=== PATIENT | female | born 1980 | race African-American/Black ===

== ENCOUNTER 2016-10-21 21:23 | Emergency (ER) | payer OTHER ==
[~2016-10-21] VITALS: Ht 157.5 cm; Wt 85.5 kg
[~2016-10-21 21:23] MED LIST: ALPR0.5T PO; CEPH-443 PO; CETI10CA PO; DICY20TA59 PO; ELIM TOP; FLUO20CA38 PO; GUAI118L94 PO; GUAI473L22 PO; HYDR-842 PO; IBUP-1542 PO; LURA40TA PO; ONDA4TAB14 PO
[2016-10-21 21:27] VITALS: Ht 157.5 cm; Wt 85.5 kg
[2016-10-21] MEDS ORDERED: TRAZ50TA18 PO (21:52)
[2016-10-21] MEDS ORDERED: OLAN5TAB5 PO (21:52)
[2016-10-21] MEDS ORDERED: LURA20TA PO (21:52)
--- NOTE | 2016-10-21 22:01 | ERD ---
ER Documentation Chief Complaint Date/Time DATE: 10/21/16 TIME: 21:58 Chief Complaint Pt has been out of meds for 3 months, Latuda, Zyprexa, and Trazadone HPI 36-year-old female presents for medication refill for a 2 day, Zyprexa and trazodone. States she has not been on meds for 3 months. She is currently feeling all right would like to get back her medications. She denies any suicidal homicidal ideations. She's actually been making an effort to get back with her psychiatric clinic but they will not be able to see her until the appointment and she is made on the . He otherwise feels well and has no medical complaints. ROS All systems reviewed and are negative except as per history of present illness. Medications Home Meds Active Scripts Trazodone Hcl* (Trazodone Hcl*) 50 Mg Tablet, 25 MG PO QHS, #4 TAB Prov:NIKOLAS RAE DO 10/21/16 Lurasidone Hcl (LATUDA) 20 Mg Tablet, 20 MG PO DAILY, #5 TAB Prov:NIKOLAS RAE DO 10/21/16 Olanzapine* (Zyprexa*) 5 Mg Tablet, 5 MG PO DAILY, #5 TAB Prov:GREENNIKOLAS DO 10/21/16 Cetirizine Hcl* (Zyrtec*) 10 Mg Capsule, 10 MG PO DAILY, #30 TAB.CHEW Prov:LISA LOPEZ NP 05/22/16 Guaifenesin-Codeine Phosphate* (Guaifenesin* AC Cough Syrup) 473 Ml Liquid, 5 ML PO Q4H Y for COUGH, #60 ML Prov:LISA LOPEZ NP 05/22/16 Ondansetron (Ondansetron Odt) 4 Mg Tab.rapdis, 4 MG PO Q8 Y for NAUSEA AND/OR VOMITING, #30 TAB Prov:LISA LOPEZ NP 05/22/16 Ibuprofen* (Motrin*) 600 Mg Tab, 600 MG PO Q6H Y for PAIN AND OR ELEVATED TEMP, #30 TAB Prov:LISA LOPEZ NP 05/22/16 Dicyclomine Hcl* (Bentyl*) 20 Mg Tablet, 20 MG PO QID, #20 TAB Prov:CUISIA,LISA HACKETT T. INSPECTOR PACKER 05/22/16 Ibuprofen* (Motrin*) 600 Mg Tab, 600 MG PO Q6H Y for PAIN AND OR ELEVATED TEMP, #30 TAB Prov:LISA LOPEZ INSPECTOR PACKER 12/30/15 Cetirizine Hcl* (Zyrtec*) 10 Mg Capsule, 10 MG PO DAILY, #30 TAB.CHEW Prov:LISA LOPEZ INSPECTOR PACKER 12/30/15 Guaifenesin-Codeine Phosphate* (Guaifenesin* with Codeine Liq) 120 Ml Liquid, 5 ML PO Q4H for COUGH, #60 ML Prov:LISA LOPEZ NP 12/30/15 Alprazolam* (Xanax*) 0.5 Mg Tab, 0.5 MG PO Q8H Y for ANXIETY, #15 TAB Prov:IVAN COCHRAN 12/27/15 Permethrin* (Elimite*) 5% Cr, 1 APPLIC TOP ONCE, #1 BOTTLE Prov:SHAVONNE GUSTAFSON INSPECTOR PACKER 01/01/15 Cephalexin* (Keflex*) 500 Mg Capsule, 500 MG PO BID for 7 Days, CAP Prov:SHAVONNE GUSTAFSON INSPECTOR PACKER 01/01/15 Hydroxyzine Hcl* (Atarax*) 25 Mg Tab, 25 MG PO Q6H Y for ITCHING, #30 TAB Prov:SHAVONNE GUSTAFSON INSPECTOR PACKER 01/01/15 Reported Medications Lurasidone Hcl (LATUDA) 40 Mg Tablet, 40 MG PO QHS 04/24/14 Fluoxetine Hcl* (Prozac*) 20 Mg Capsule, 20 MG PO DAILY, CAP 04/24/14 Alprazolam* (Xanax*) 0.5 Mg Tab, 0.5 MG PO TID, TAB 04/24/14 Allergies Allergies: Coded Allergies: No Known Drug Allergy (Verified Allergy, Unknown, 12/26/15) PMhx/Soc History of Surgery: No Anesthesia Reaction: No Hx Neurological Disorder: No Hx Respiratory Disorders: No Hx Cardiac Disorders: No Hx Psychiatric Problems: Yes (depression) Hx Miscellaneous Medical Probl: No Hx Alcohol Use: No Hx Substance Use: No Hx Tobacco Use: Yes Smoking Status: Current every day smoker Physical Exam Vitals Vital Signs Date Time Temp Pulse Resp B/P Pulse Ox O2 Delivery O2 Flow Rate FiO2 10/21/16 21:27 98.0 78 16 119/74 99 Physical Exam Const: [] No distress Neur: Awake and alert and oriented 3, no focal deficits Psych: Normal Mood and Affect Procedures/MDM Simple medication refill for chronic medications to the patient has been without for 3 months without any inability to perform her daily tasks or razor children. She has no suicidal some homicidal ideations. She is stable. I'm going to provide her with 5 days worth of medications and follow-up with a local clinics in the area. Departure Diagnosis: Primary Impression: Encounter for medication refill Condition: Stable Patient Instructions: Taking Medicine Safely Referrals: [facility] YOU HAVE RECEIVED A MEDICAL SCREENING EXAM AND THE RESULTS INDICATE THAT YOU DO NOT HAVE A CONDITION THAT REQUIRES URGENT TREATMENT IN THE EMERGENCY DEPARTMENT. FURTHER EVALUATION AND TREATMENT OF YOUR CONDITION CAN WAIT UNTIL YOU ARE SEEN IN YOUR DOCTORS OFFICE WITHIN THE NEXT 1-2 DAYS. IT IS YOUR RESPONSIBILITY TO MAKE AN APPOINTMENT FOR FOLOW-UP CARE. IF YOU HAVE A PRIMARY DOCTOR --you should call your primary doctor and schedule an appointment IF YOU DO NOT HAVE A PRIMARY DOCTOR YOU CAN CALL OUR PHYSICIAN REFERRAL HOTLINE AT IF YOU CAN NOT AFFORD TO SEE A PHYSICIAN YOU CAN CHOSE FROM THE FOLLOWING [facility] [address] [facility]. [facility] [address] [facility] [facility] [address] [facility] [facility] [address] [facility]. [facility] [address] [facility]. [facility] [address] Additional Instructions: Call your primary care doctor Sunday for an appointment during the next 1-2 days.See the doctor sooner or return here if your condition worsens before your appointment time. NIKOLAS RAE DO Oct 21, 2016 22:01
== END 2016-10-21 22:40 | disposition home or self-care (01) ==
LOC: FTE 21:23
DX: Z76.0 Encounter for issue of repeat prescription (principal); F17.210 Nicotine dependence, cigarettes, uncomplicated
CPT/HCPCS: 99281

== ENCOUNTER 2016-11-11 23:43 | Emergency (ER) | payer OTHER ==
[~2016-11-11] VITALS: Ht 154.9 cm; Wt 89.1 kg
[~2016-11-11 23:43] MED LIST changes: +LURA20TA PO; +OLAN5TAB5 PO; +TRAZ50TA18 PO
[2016-11-11 23:47] VITALS: Ht 154.9 cm; Wt 89.1 kg
[2016-11-12] MEDS ORDERED: ACETAMINOPHEN 500 MG TAB PO STA (00:23)
[2016-11-12] MEDS ORDERED: ACET500C5 PO (00:41)
[2016-11-12] MEDS ORDERED: AMO500 PO (00:42)
[2016-11-12] MEDS ORDERED: GUAI-637 PO (00:42)
[2016-11-12] MEDS ORDERED: ONDA4TAB14 PO (00:43)
--- NOTE | 2016-11-12 00:53 | ERD ---
ER Documentation Chief Complaint Date/Time DATE: 11/12/16 TIME: 00:[address], cough, cold and fever x1 wk, Bodyache and Back pain x3 wks HPI Patient is a 36-year-old female who presents emergency department with numerous concerns including a tooth pain, sore throat, cough, fever, generalized body aches and back pain. Patient states that her tooth pain started approximately 3 weeks ago. Patient does have a history of dental caries which she has not been seen by dentist for in the past. Patient states the pain initiates in her right upper molar and radiates into her head. Patient states that she has been taking migraine medication with no relief of symptoms. Patient states that she also has had nasal congestion, a cough and fever for last week. Patient reports tactile fevers. Patient states that her cough is dry in nature. Patient denies any recent travel, hemoptysis. Patient also complaining of shortness of breath and chest pain with coughing only. Patient denies any chest pain at rest. Patient also reports nausea and vomiting. Patient patient also reports throat pain. She denies any trismus, drooling or hyperextension of her neck. She denies receiving the flu vaccine this year. Patient denies any recent travel or sick contacts. She is requesting antibiotics at this time. Patient also requesting HIV testing , given that she feels that her symptoms are related to HIV. ROS All systems reviewed and are negative except as per history of present illness. Medications Home Meds Active Scripts Ondansetron (Ondansetron Odt) 4 Mg Tab.rapdis, 4 MG PO Q6H Y for NAUSEA AND/OR VOMITING, #10 TAB Prov:AMERICA STEARNS PA-C 11/12/16 Guaifenesin* (Robitussin*) 100 Mg/5 Ml Syrup, 100 MG PO Q4H Y for COUGH, #1 BOT Prov:AMERICA STEARNS PA-C 11/12/16 Amoxicillin* (Amoxicillin*) 500 Mg Cap, 500 MG PO TID for 7 Days, CAP Prov:AMERICA STEARNS PA-C 11/12/16 Acetaminophen* (Tylophen*) 500 Mg Capsule, 1 CAP PO Q6H Y for PAIN AND OR ELEVATED TEMP, #20 CAP Prov:AMERICA STEARNS PA-C 11/12/16 Trazodone Hcl* (Trazodone Hcl*) 50 Mg Tablet, 25 MG PO QHS, #4 TAB Prov:NIKOLAS RAE DO 10/21/16 Lurasidone Hcl (LATUDA) 20 Mg Tablet, 20 MG PO DAILY, #5 TAB Prov:NIKOLAS RAE DO 10/21/16 Olanzapine* (Zyprexa*) 5 Mg Tablet, 5 MG PO DAILY, #5 TAB Prov:NIKOLAS RAE DO 10/21/16 Cetirizine Hcl* (Zyrtec*) 10 Mg Capsule, 10 MG PO DAILY, #30 TAB.CHEW Prov:LISA LOPEZ NP 05/22/16 Guaifenesin-Codeine Phosphate* (Guaifenesin* AC Cough Syrup) 473 Ml Liquid, 5 ML PO Q4H Y for COUGH, #60 ML Prov:LISA LOPEZ NP 05/22/16 Ondansetron (Ondansetron Odt) 4 Mg Tab.rapdis, 4 MG PO Q8 Y for NAUSEA AND/OR VOMITING, #30 TAB Prov:LISA LOPEZ NP 05/22/16 Ibuprofen* (Motrin*) 600 Mg Tab, 600 MG PO Q6H Y for PAIN AND OR ELEVATED TEMP, #30 TAB Prov:LISA LOPEZ NP 05/22/16 Dicyclomine Hcl* (Bentyl*) 20 Mg Tablet, 20 MG PO QID, #20 TAB Prov:LISA LOPEZ NP 05/22/16 Ibuprofen* (Motrin*) 600 Mg Tab, 600 MG PO Q6H Y for PAIN AND OR ELEVATED TEMP, #30 TAB Prov:LISA LOPEZ NP 12/30/15 Cetirizine Hcl* (Zyrtec*) 10 Mg Capsule, 10 MG PO DAILY, #30 TAB.CHEW Prov:LISA LOPEZ NP 12/30/15 Guaifenesin-Codeine Phosphate* (Guaifenesin* with Codeine Liq) 120 Ml Liquid, 5 ML PO Q4H for COUGH, #60 ML Prov:LISA LOPEZ NP 12/30/15 Alprazolam* (Xanax*) 0.5 Mg Tab, 0.5 MG PO Q8H Y for ANXIETY, #15 TAB Prov:IVAN COCHRAN 12/27/15 Permethrin* (Elimite*) 5% Cr, 1 APPLIC TOP ONCE, #1 BOTTLE Prov:SHAVONNE GUSTAFSON. BUTTON SPINDLER 01/01/15 Cephalexin* (Keflex*) 500 Mg Capsule, 500 MG PO BID for 7 Days, CAP Prov:SHAVONNE GUSTAFSON. BUTTON SPINDLER 01/01/15 Hydroxyzine Hcl* (Atarax*) 25 Mg Tab, 25 MG PO Q6H Y for ITCHING, #30 TAB Prov:SHAVONNE GUSTAFSON. BUTTON SPINDLER 01/01/15 Reported Medications Lurasidone Hcl (LATUDA) 40 Mg Tablet, 40 MG PO QHS 04/24/14 Fluoxetine Hcl* (Prozac*) 20 Mg Capsule, 20 MG PO DAILY, CAP 04/24/14 Alprazolam* (Xanax*) 0.5 Mg Tab, 0.5 MG PO TID, TAB 04/24/14 Allergies Allergies: Coded Allergies: No Known Drug Allergy (Verified Allergy, Unknown, 12/26/15) PMhx/Soc History of Surgery: No Anesthesia Reaction: No Hx Neurological Disorder: No Hx Respiratory Disorders: No Hx Cardiac Disorders: No Hx Psychiatric Problems: Yes (depression) Hx Miscellaneous Medical Probl: No Hx Alcohol Use: Yes (wine) Hx Substance Use: No Hx Tobacco Use: Yes Smoking Status: Former smoker FmHx Family History: No diabetes Physical Exam Vitals Vital Signs Date Time Temp Pulse Resp B/P Pulse Ox O2 Delivery O2 Flow Rate FiO2 11/11/16 23:47 98.2 94 18 133/77 97 Physical Exam GENERAL: Well-developed, well-nourished female. Appears in no acute distress. HEAD: Normocephalic, atraumatic. No deformities or ecchymosis. EYE: Pupils equal, round, and reactive to light. EOMs intact. No conjunctival erythema. No eye discharge. ENT: External ear without any masses or tenderness. Auditory canals clear bilaterally. TM visualized bilaterally, non-erythematous, non-bulging. Nasal mucosa pink with no discharge. Oropharynx is pink without any tonsillar erythema or exudates. No uvula deviation. No kissing tonsils. NECK: Supple. No meningismus. Normal ROM of the neck. No hyperextension of the neck. LUNG: Clear to auscultation bilaterally. No rhonchi, wheezing, rales or coarse breath sounds. HEART: Regular rate and rhythm. No murmurs, rubs or gallops. ABDOMEN: Soft, nontender, and nondistended. Positive bowel sounds in all four quadrants. No rebound tenderness, no guarding. (-) McBurney's point tenderness. No CVA tenderness. BACK: No midline tenderness. EXTREMITES: Equal pulses bilaterally. No peripheral clubbing, cyanosis or edema. No unilateral leg swelling. NEUROLOGIC: Alert and oriented to person, place and time. Moving all four extremities. 5/5 strength in all extremities. Normal speech. Steady gait. SKIN: Normal color. Warm and dry. No rashes or lesions. Results 24 hrs Current Medications Medications (Trade) Dose Ordered Sig/Eliseo Route PRN Reason Start Time Stop Time Status Last Admin Dose Admin Acetaminophen (Tylenol Tab) 1,000 mg ONCE STAT PO 11/12/16 00:23 11/12/16 00:25 DC 11/12/16 00:34 Procedures/MDM ED COURSE: The patient was stable throughout ED course. I kept the patient and/or family informed of laboratory and diagnostic imaging results throughout the ED course. EKG: Read by Dr. Doherty, attending physician. EKG shows normal sinus rhythm at a rate of 85 bpm. No arrhythmias, acute ST elevations were noted. DIAGNOSTIC IMAGING: Read by radiologist. DIAGNOSTIC IMAGING REPORT Patient: BABAR GUZMAN : 1980 Age: 36 Sex: F [id number] DOS: 11/12/16 0023 Ordering MD: AMERICA STEARNS PA-C Location: [facility] Room/Bed: PROCEDURE: XR Chest. CLINICAL INDICATION: Cough. TECHNIQUE: Single frontal chest x-ray. COMPARISON: 12/27/2015 FINDINGS: The cardiomediastinal silhouette is unremarkable. There is no congestive heart failure.. No focal infiltrate is seen. There is no pleural effusion. There is no pneumothorax. The osseous structures are unremarkable. IMPRESSION: 1. No active disease. RPTAT: HMVK .Yossi Fraga MD, Date Time Electronically viewed and signed by .Yossi Fraga MD, MD on 11/12/2016 01:30 .K/ CC: AMERICA STEARNS PA-C MEDICATIONS GIVEN: Tylenol Patient tolerated medication well with no adverse reactions. Patient reported improvement in pain. MEDICAL DECISION MAKING: This is a 36-year-old female who presents emergency department with numerous concerns including sore throat, tooth pain, cough, fever, body aches, headache. Vital signs were reviewed. Patient was afebrile. Patient was not hypoxic. ENT exam was normal. Lung exam is normal. Abdominal exam was normal. Given the patient did report cough for over a week, chest x-ray was obtained. Chest xray was unremarkable. Patient was given Tylenol here in the emergency department for symptoms. Given these findings, the patients presentation is most consistent with viral syndrome and dental caries. I believe that the patient's headaches are due to dental caries. I have a much lower clinical concern ACS, pericarditis, arrhythmia, pneumothorax, pneumonia, meningitis, sinusitis, otitis externa, acute otitis media, strep pharyngitis, epiglottitis or peritonsillar abscess. Low suspicion for intracranial hemorrhage, migraines, CVA, temporal arteritis, benign intracranial hypertension, intracranial mass, sinusitis. PRESCRIPTIONS: Tylenol, amoxicillin, Robitussin, Zofran DISCHARGE: At this time, patient is stable for discharge and outpatient management. Patient provided with a copy of all imaging studies obtained today. I explained to the patient that I am unable to rule out HIV at this time. Patient will need to see her primary care physician for HIV testing. Supportive therapies such as OTC throat lozenges, salt water gurgles, popsicles and jello discussed. I have instructed the patient to follow-up with his/her primary care physician in 1-2 days. I have instructed the patient to promptly return to the ER for any new or worsening symptoms including increased pain, swelling, fever, nausea, vomiting, weakness or difficulty breathing. The patient and/or family expressed understanding of and agreement with this plan. All questions were answered. Home care instructions were provided. Departure Diagnosis: Primary Impression: Influenza-like symptoms Additional Impression: Dental caries Condition: Stable Patient Instructions: Influenza (Adult) Referrals: [facility] YOU HAVE RECEIVED A MEDICAL SCREENING EXAM AND THE RESULTS INDICATE THAT YOU DO NOT HAVE A CONDITION THAT REQUIRES URGENT TREATMENT IN THE EMERGENCY DEPARTMENT. FURTHER EVALUATION AND TREATMENT OF YOUR CONDITION CAN WAIT UNTIL YOU ARE SEEN IN YOUR DOCTORS OFFICE WITHIN THE NEXT 1-2 DAYS. IT IS YOUR RESPONSIBILITY TO MAKE AN APPOINTMENT FOR FOLOW-UP CARE. IF YOU HAVE A PRIMARY DOCTOR --you should call your primary doctor and schedule an appointment IF YOU DO NOT HAVE A PRIMARY DOCTOR YOU CAN CALL OUR PHYSICIAN REFERRAL HOTLINE AT IF YOU CAN NOT AFFORD TO SEE A PHYSICIAN YOU CAN CHOSE FROM THE FOLLOWING [facility] [address] [facility]. [facility] [address] [facility] [address] [facility] [address] [facility] [facility] [address] [facility]. [facility] [address] [facility]. [facility] YOU HAVE RECEIVED A MEDICAL SCREENING EXAM AND THE RESULTS INDICATE THAT YOU DO NOT HAVE A CONDITION THAT REQUIRES URGENT TREATMENT IN THE EMERGENCY DEPARTMENT. FURTHER EVALUATION AND TREATMENT OF YOUR CONDITION CAN WAIT UNTIL YOU ARE SEEN IN YOUR DOCTORS OFFICE WITHIN THE NEXT 1-2 DAYS. IT IS YOUR RESPONSIBILITY TO MAKE AN APPOINTMENT FOR FOLOW-UP CARE. IF YOU HAVE A PRIMARY DOCTOR --you should call your primary doctor and schedule and appointment IF YOU DO NOT HAVE A PRIMARY DOCTOR YOU CAN CALL OUR PHYSICIAN REFERRAL HOTLINE AT . IF YOU CAN NOT AFFORD TO SEE A PHYSICIAN YOU CAN CHOSE FROM THE FOLLOWING [facility] [place] INSTITUTIONS: [facility] [address] [place] [address] [facility] [address] [place] [address] [facility] [address] [place] [address] [facility] Hours: Mon - Fri 9:00 AM - 5:00 PM Additional Instructions: Call your primary care doctor/ DENTIST TOMORROW for an appointment during the next 1-2 days.See the doctor sooner or return here if your condition worsens before your appointment time. See referral list for Dentist. AMERICA STEARNS PA-C November 12, 2016 00:53
--- NOTE | 2016-11-12 01:31 | RADRPT ---
PROCEDURE: XR Chest. CLINICAL INDICATION: Cough. TECHNIQUE: Single frontal chest x-ray. COMPARISON: 12/27/2015 FINDINGS: The cardiomediastinal silhouette is unremarkable. There is no congestive heart failure.. No focal i nfiltrate is seen. There is no pleural effusion. There is no pneumothorax. The osseous structures are unremarkable. IMPRESSION: 1. No active disease. RPTAT: HMVK .Yossi Fraga MD, MD Date Time Electronically viewed and signed by .Yossi Fraga MD, on 11/12/2016 01:30 .K/
[2016-11-12 01:42] VITALS: BP 112/65; PULSE 62; RESP 22; TEMP 97.8
== END 2016-11-12 01:43 | disposition home or self-care (01) ==
LOC: FTE 23:43
DX: J02.9 Acute pharyngitis, unspecified (principal); R05 Cough; R50.9 Fever, unspecified; M54.9 Dorsalgia, unspecified; K02.9 Dental caries, unspecified; Z87.891 Personal history of nicotine dependence
CPT/HCPCS: 71010; 93005; Z7502; Z7610

== ENCOUNTER 2016-11-26 01:18 | Emergency (ER) | payer OTHER ==
[~2016-11-26] VITALS: Wt 82.5 kg
[~2016-11-26 01:18] MED LIST changes: +ACET500C5 PO; +AMO500 PO; +GUAI-637 PO
[2016-11-26 02:42] LABS: ADD SCAN DIFF NO
[2016-11-26 02:45] LABS: BASOPHIL # 0.1 10^3/ul (0.0-0.1); BASOPHILS % 0.9 % (0.0-2.0); EOSINOPHILS # 0.1 10^3/ul (0.0-0.5); EOSINOPHILS % 2.3 % (0.0-7.0); HEMATOCRIT 36.6 % (37.0-47.0); HEMOGLOBIN 11.3 g/dl (12.0-16.0); LYMPHOCYTES # 2.5 10^3/ul (0.8-2.9); LYMPHOCYTES % 45.1 % (15.0-51.0); MEAN CORPUSCULAR HEMOGLOBIN 26.3 pg (29.0-33.0); MEAN CORPUSCULAR HGB CONC 30.9 g/dl (32.0-37.0); MEAN CORPUSCULAR VOLUME 85.3 fl (82.0-101.0); MEAN PLATELET VOLUME 10.2 fl (7.4-10.4); MONOCYTE # 0.6 10^3/ul (0.3-0.9); MONOCYTES % 11.3 % (0.0-11.0); NEUTROPHIL # 2.3 10^3/ul (1.6-7.5); NEUTROPHILS % 40.2 % (39.0-77.0); PLATELET COUNT 263 10^3/UL (140-415); RED BLOOD COUNT 4.29 10^6/ul (4.20-5.40); WHITE BLOOD COUNT 5.6 10^3/ul (4.8-10.8)
[2016-11-26 03:11] LABS: ALBUMIN 4.3 g/dl (3.3-4.9); CHLORIDE 107 mmol/L (97-110); SODIUM 144 mmol/L (135-144)
[2016-11-26 03:12] LABS: POTASSIUM 3.7 mmol/L (3.5-5.1)
[2016-11-26 03:14] LABS: ALANINE AMINOTRANSFERASE 25 IU/L (13-69); ALBUMIN/GLOBULIN RATIO 1.07; ALKALINE PHOSPHATASE 69 IU/L (42-121); ANION GAP 18 (8-16); ASPARTATE AMINO TRANSFERASE 15 IU/L (15-46); BILIRUBIN,INDIRECT 0.1 mg/dl (0-1.1); BILIRUBIN,TOTAL 0.1 mg/dl (0.2-1.3); BLOOD UREA NITROGEN 11 mg/dl (7-20); CALCIUM 9.4 mg/dl (8.4-10.2); CARBON DIOXIDE 23 mmol/L (21-31); CREATININE 0.77 mg/dl (0.44-1.00); GLUCOSE 93 mg/dl (70-220); TOTAL PROTEIN 8.3 g/dl (6.1-8.1)
[2016-11-26 03:16] LABS: ACETAMINOPHEN < 10.0 ug/ml (10.0-30.0); ETHANOL < 10.0 mg/dl; SALICYLATE < 1.0 mg/dl (5.0-30.0)
[2016-11-26 03:58] LABS: ADD UMIC NO; URINE BILIRUBIN (Dip) NEGATIVE (NEGATIVE); URINE BLOOD (Dip) NEGATIVE (NEGATIVE); URINE COLOR YELLOW (YELLOW); URINE GLUCOSE (Dip) NEGATIVE (NEGATIVE); URINE KETONES (Dip) NEGATIVE (NEGATIVE); URINE LEUKOCYTE ESTERASE (Dip) NEGATIVE (NEGATIVE); URINE NITRITE (Dip) NEGATIVE (NEGATIVE); URINE TOTAL PROTEIN (Dip) NEGATIVE (NEGATIVE); URINE UROBILINOGEN (Dip) 0.2 E.U./dL (0.1-1.0)
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
[2016-11-26 04:19] LABS: BARBITURATES NEGATIVE (NEGATIVE); BENZODIAZEPINES NEGATIVE (NEGATIVE); CANNABINOIDS NEGATIVE (NEGATIVE); COCAINE NEGATIVE (NEGATIVE); OPIATES NEGATIVE (NEGATIVE)
--- NOTE | 2016-11-26 05:12 | ERD ---
ER Documentation Chief Complaint Date/Time DATE: 11/26/16 TIME: 05:10 Chief Complaint Suicidal ideation started today HPI This 36-year-old female presents with stated suicidal ideation without a specific plan. She states that she suffers from major depression which she has been diagnosed with in the past. She denies any medical complaints and has not taken anything or tried to harm herself yet. She also has no pain or any other medical issues currently. ROS All systems reviewed and are negative except as per history of present illness. Medications Home Meds Active Scripts Ondansetron (Ondansetron Odt) 4 Mg Tab.rapdis, 4 MG PO Q6H Y for NAUSEA AND/OR VOMITING, #10 TAB Prov:AMERICA STEARNS PA-C 11/12/16 Guaifenesin* (Robitussin*) 100 Mg/5 Ml Syrup, 100 MG PO Q4H Y for COUGH, #1 BOT Prov:AMERICA STEARNS PA-C 11/12/16 Amoxicillin* (Amoxicillin*) 500 Mg Cap, 500 MG PO TID for 7 Days, CAP Prov:AMERICA STEARNS PA-C 11/12/16 Acetaminophen* (Tylophen*) 500 Mg Capsule, 1 CAP PO Q6H Y for PAIN AND OR ELEVATED TEMP, #20 CAP Prov:AMERICA STEARNS PA-C 11/12/16 Trazodone Hcl* (Trazodone Hcl*) 50 Mg Tablet, 25 MG PO QHS, #4 TAB Prov:NIKOLAS RAE DO 10/21/16 Lurasidone Hcl (LATUDA) 20 Mg Tablet, 20 MG PO DAILY, #5 TAB Prov:NIKOLAS RAE DO 10/21/16 Olanzapine* (Zyprexa*) 5 Mg Tablet, 5 MG PO DAILY, #5 TAB Prov:NIKOLAS RAE DO 10/21/16 Cetirizine Hcl* (Zyrtec*) 10 Mg Capsule, 10 MG PO DAILY, #30 TAB.CHEW Prov:LISA LOPEZ NP 05/22/16 Guaifenesin-Codeine Phosphate* (Guaifenesin* AC Cough Syrup) 473 Ml Liquid, 5 ML PO Q4H Y for COUGH, #60 ML Prov:LISA LOPEZ NP 11/14/16 Ondansetron (Ondansetron Odt) 4 Mg Tab.rapdis, 4 MG PO Q8 Y for NAUSEA AND/OR VOMITING, #30 TAB Prov:LISA LOPEZ NP 05/22/16 Ibuprofen* (Motrin*) 600 Mg Tab, 600 MG PO Q6H Y for PAIN AND OR ELEVATED TEMP, #30 TAB Prov:LISA LOPEZ NP 05/22/16 Dicyclomine Hcl* (Bentyl*) 20 Mg Tablet, 20 MG PO QID, #20 TAB Prov:LISA LOPEZ NP 05/22/16 Ibuprofen* (Motrin*) 600 Mg Tab, 600 MG PO Q6H Y for PAIN AND OR ELEVATED TEMP, #30 TAB Prov:LISA LOPEZ NP 12/30/15 Cetirizine Hcl* (Zyrtec*) 10 Mg Capsule, 10 MG PO DAILY, #30 TAB.CHEW Prov:LISA LOPEZ NP 12/30/15 Guaifenesin-Codeine Phosphate* (Guaifenesin* with Codeine Liq) 120 Ml Liquid, 5 ML PO Q4H for COUGH, #60 ML Prov:LISA LOPEZ NP 12/30/15 Alprazolam* (Xanax*) 0.5 Mg Tab, 0.5 MG PO Q8H Y for ANXIETY, #15 TAB Prov:IVAN COCHRAN 12/27/15 Permethrin* (Elimite*) 5% Cr, 1 APPLIC TOP ONCE, #1 BOTTLE Prov:SHAVONNE GUSTAFSON NP 01/01/15 Cephalexin* (Keflex*) 500 Mg Capsule, 500 MG PO BID for 7 Days, CAP Prov:SHAVONNE GUSTAFSON NP 01/01/15 Hydroxyzine Hcl* (Atarax*) 25 Mg Tab, 25 MG PO Q6H Y for ITCHING, #30 TAB Prov:SHAVONNE GUSTAFSON NP 01/01/15 Reported Medications Lurasidone Hcl (LATUDA) 40 Mg Tablet, 40 MG PO QHS 04/24/14 Fluoxetine Hcl* (Prozac*) 20 Mg Capsule, 20 MG PO DAILY, CAP 04/24/14 Alprazolam* (Xanax*) 0.5 Mg Tab, 0.5 MG PO TID, TAB 04/24/14 Allergies Allergies: Coded Allergies: No Known Drug Allergy (Verified Allergy, Unknown, 12/26/15) PMhx/Soc Medical and Surgical Hx: pt denies Surgical Hx History of Surgery: No Anesthesia Reaction: No Hx Neurological Disorder: No Hx Respiratory Disorders: No Hx Cardiac Disorders: No Hx Psychiatric Problems: Yes (depression) Hx Miscellaneous Medical Probl: No Hx Alcohol Use: Yes (wine) Hx Substance Use: No Hx Tobacco Use: Yes Smoking Status: Current every day smoker Physical Exam Vitals Vital Signs Date Time Temp Pulse Resp B/P Pulse Ox O2 Delivery O2 Flow Rate FiO2 11/26/16 01:20 98.4 85 20 137/75 99 Physical Exam Const: [] Head: Atraumatic Eyes: Normal Conjunctiva ENT: Normal External Ears, Nose and Mouth. Neck: Full range of motion..~ No meningismus. Resp: Clear to auscultation bilaterally Cardio: Regular rate and rhythm, no murmurs Abd: Soft, non tender, non distended. Normal bowel sounds Skin: No petechiae or rashes Back: No midline or flank tenderness Ext: No cyanosis, or edema Neur: Awake and alert Psych: Normal Mood and Affect Result Diagram: 11/26/1621911/26/16 022 Results 24 hrs Laboratory Tests Test 11/26/16 02:20 11/26/16 03:30 White Blood Count 5.610^3/ul Red Blood Count 4.2910^6/ul Hemoglobin 11.3g/dl Hematocrit 36.6% Mean Corpuscular Volume 85.3fl Mean Corpuscular Hemoglobin 26.3pg Mean Corpuscular Hemoglobin Concent 30.9g/dl Red Cell Distribution Width 16.0% Platelet Count 53686^3/UL Mean Platelet Volume 10.2fl Neutrophils % 40.2% Lymphocytes % 45.1% Monocytes % 11.3% Eosinophils % 2.3% Basophils % 0.9% Nucleated Red Blood Cells % 0.0/100WBC Neutrophils # 2.310^3/ul Lymphocytes # 2.510^3/ul Monocytes # 0.610^3/ul Eosinophils # 0.110^3/ul Basophils # 0.110^3/ul Nucleated Red Blood Cells # 0.010^3/ul Sodium Level 144mmol/L Potassium Level 3.7mmol/L Chloride Level 107mmol/L Carbon Dioxide Level 23mmol/L Anion Gap 18 Blood Urea Nitrogen 11mg/dl Creatinine 0.77mg/dl Glucose Level 93mg/dl Calcium Level 9.4mg/dl Total Bilirubin 0.1mg/dl Direct Bilirubin 0.00mg/dl Indirect Bilirubin 0.1mg/dl Aspartate Amino Transf (AST/SGOT) 15IU/L Alanine Aminotransferase (ALT/SGPT) 25IU/L Alkaline Phosphatase 69IU/L Total Protein 8.3g/dl Albumin 4.3g/dl Globulin 4.00g/dl Albumin/Globulin Ratio 1.07 Salicylates Level < 1.0mg/dl Acetaminophen Level < 10.0ug/ml Ethyl Alcohol Level < 10.0mg/dl Urine Color YELLOW Urine Clarity CLEAR Urine pH 5.5 Urine Specific [place] >=1.030 Urine Ketones NEGATIVE Urine Nitrite NEGATIVE Urine Bilirubin NEGATIVE Urine Urobilinogen 0.2 E.U./dL Urine Leukocyte Esterase NEGATIVE Urine Hemoglobin NEGATIVE Urine Glucose NEGATIVE% Urine Total Protein NEGATIVE Urine Opiates Screen NEGATIVE Urine Barbiturates NEGATIVE Urine Amphetamines Screen NEGATIVE Urine Benzodiazepines Screen NEGATIVE Urine Cocaine Screen NEGATIVE Urine Cannabinoids NEGATIVE Procedures/MDM Young healthy female stating thoughts of hurting herself and wanting to be admitted to a psychiatric facility. Medically cleared in the sense that there are no current medical problems I see which preclude her from psychiatric admission. Tele-psychiatry recommended that she be admitted voluntarily. She is wanting to go to psych facility and thus will be transferred for voluntary admission. Mild anemia with no current symptoms. Departure Diagnosis: Primary Impression: Major depression NIKOLAS RAE DO November 26, 2016 05:12
[2016-11-26] MEDS ORDERED: OLAN10TA7 PO (11:31)
[2016-11-26 11:49] VITALS: BP 135/74; PULSE 80; RESP 20; TEMP 98.3
== END 2016-11-26 11:51 ==
LOC: E/R 01:18
DX: F32.9 Major depressive disorder, single episode, unspecified (principal); F17.210 Nicotine dependence, cigarettes, uncomplicated
CPT/HCPCS: 36415; 80053; 80306; 80307; 81003; 85025; Z7502

== ENCOUNTER 2017-04-18 | Emergency (ER) | payer OTHER ==
[~2017-04-18] VITALS: Ht 165.1 cm; Wt 86.0 kg
[~2017-04-18] MED LIST changes: -AMO500 PO; +AMOX500C2 PO; -FLUO20CA38 PO; +OLAN10TA7 PO
[2017-04-18 00:03] VITALS: Ht 165.1 cm; Wt 86.0 kg
[2017-04-18] MEDS ORDERED: KETOROLAC 30 MG INJ IM STA (02:05)
[2017-04-18 02:10] LABS: URINE BLOOD (Dip) POC 2+ (NEGATIVE)
[2017-04-18] MEDS ORDERED: CIPR500T4 PO (02:24)
[2017-04-18] MEDS ORDERED: NAPR-260 PO (02:24)
[2017-04-18] MEDS ORDERED: CEFTRIAXONE 1 GM INJ IM ONE (02:30)
[2017-04-18] MEDS ORDERED: LIDOCAINE 1% (MDV) 20 ML INJ SC ONE (02:30)
--- NOTE | 2017-04-18 02:45 | ERD ---
ER Documentation Chief Complaint Date/Time DATE: 04/18/17 TIME: 02:43 Chief Complaint frequent urinary, hematuria, dysuria x2 weeks HPI Patient is a 36-year-old female with past medical history of urinary tract infection presenting to the emergency department with complaints of frequent urination, hematuria, and dysuria ongoing intermittently for the past 2 weeks. Symptoms are intermittent and worsening. She also reports bilateral back pain and suprapubic pain. She denies fevers, chills, or other symptoms at this time. ROS All systems reviewed and are negative except as per history of present illness. Medications Home Meds Active Scripts Naproxen* (Naprosyn*) 500 Mg Tablet, 500 MG PO BID Y for PAIN AND/OR INFLAMMATION, #30 TAB Prov:PACO LOCKE PA-C 04/18/17 Ciprofloxacin Hcl* (Ciprofloxacin Hcl*) 500 Mg Tablet, 500 MG PO BID for 7 Days , #14 TAB Prov:PACO LOCKE PA-C 04/18/17 Ondansetron (Ondansetron Odt) 4 Mg Tab.rapdis, 4 MG PO Q6H Y for NAUSEA AND/OR VOMITING, #10 TAB Prov:AMERICA STEARNS PA-C 11/12/16 Guaifenesin* (Robitussin*) 100 Mg/5 Ml Syrup, 100 MG PO Q4H Y for COUGH, #1 BOT Prov:AMERICA STEARNS PA-C 11/12/16 Amoxicillin* (Amoxicillin*) 500 Mg Cap, 500 MG PO TID for 7 Days, CAP Prov:AMERICA STEARNS PA-C 11/12/16 Acetaminophen* (Tylophen*) 500 Mg Capsule, 1 CAP PO Q6H Y for PAIN AND OR ELEVATED TEMP, #20 CAP Prov:AMERICA STEARNS PA-C 11/12/16 Trazodone Hcl* (Trazodone Hcl*) 50 Mg Tablet, 25 MG PO QHS, #4 TAB Prov:NIKOLAS RAE DO 10/21/16 Lurasidone Hcl (LATUDA) 20 Mg Tablet, 20 MG PO DAILY, #5 TAB Prov:NIKOLAS RAE DO 10/21/16 Olanzapine* (Zyprexa*) 5 Mg Tablet, 5 MG PO DAILY, #5 TAB Prov:NIKOLAS RAE DO 10/21/16 Cetirizine Hcl* (Zyrtec*) 10 Mg Capsule, 10 MG PO DAILY, #30 TAB.CHEW Prov:LISA LOPEZ NP 05/22/16 Guaifenesin-Codeine Phosphate* (Guaifenesin* AC Cough Syrup) 473 Ml Liquid, 5 ML PO Q4H Y for COUGH, #60 ML Prov:LISA LOPEZ NP 05/22/16 Ondansetron (Ondansetron Odt) 4 Mg Tab.rapdis, 4 MG PO Q8 Y for NAUSEA AND/OR VOMITING, #30 TAB Prov:LISA LOPEZ NP 05/22/16 Ibuprofen* (Motrin*) 600 Mg Tab, 600 MG PO Q6H Y for PAIN AND OR ELEVATED TEMP, #30 TAB Prov:LISA LOPEZ NP 05/22/16 Dicyclomine Hcl* (Bentyl*) 20 Mg Tablet, 20 MG PO QID, #20 TAB Prov:LISA LOPEZ NP 05/22/16 Ibuprofen* (Motrin*) 600 Mg Tab, 600 MG PO Q6H Y for PAIN AND OR ELEVATED TEMP, #30 TAB Prov:LISA LOPEZ NP 12/30/15 Cetirizine Hcl* (Zyrtec*) 10 Mg Capsule, 10 MG PO DAILY, #30 TAB.CHEW Prov:LISA LOPEZ NP 12/30/15 Guaifenesin-Codeine Phosphate* (Guaifenesin* with Codeine Liq) 120 Ml Liquid, 5 ML PO Q4H for COUGH, #60 ML Prov:LISA LOPEZ NP 12/30/15 Alprazolam* (Xanax*) 0.5 Mg Tab, 0.5 MG PO Q8H Y for ANXIETY, #15 TAB Prov:IVAN COCHRAN 12/27/15 Permethrin* (Elimite*) 5% Cr, 1 APPLIC TOP ONCE, #1 BOTTLE Prov:SHAVONNE GUSTAFSON NP 01/01/15 Cephalexin* (Keflex*) 500 Mg Capsule, 500 MG PO BID for 7 Days, CAP Prov:SHAVONNE GUSTAFSON AIRFRAME TECHNICIAN 01/01/15 Hydroxyzine Hcl* (Atarax*) 25 Mg Tab, 25 MG PO Q6H Y for ITCHING, #30 TAB Prov:SHAVONNE GUSTAFSON. AIRFRAME TECHNICIAN 01/01/15 Reported Medications Olanzapine* (Zyprexa*) 10 Mg Tablet, 10 MG PO DAILY, #30 TAB 11/26/16 Lurasidone Hcl (LATUDA) 40 Mg Tablet, 40 MG PO QHS 04/24/14 Alprazolam* (Xanax*) 0.5 Mg Tab, 0.5 MG PO TID, TAB 04/24/14 Allergies Allergies: Coded Allergies: No Known Drug Allergy (Verified Allergy, Unknown, 04/18/17) PMhx/Soc Medical and Surgical Hx: pt denies Surgical Hx History of Surgery: No Anesthesia Reaction: No Hx Neurological Disorder: No Hx Respiratory Disorders: No Hx Cardiac Disorders: No Hx Psychiatric Problems: Yes (major depressive disorder) Hx Miscellaneous Medical Probl: No Hx Alcohol Use: No Hx Substance Use: No Hx Tobacco Use: Yes Smoking Status: Current every day smoker Physical Exam Vitals Vital Signs Date Time Temp Pulse Resp B/P Pulse Ox O2 Delivery O2 Flow Rate FiO2 04/18/17 00:03 97.1 75 18 131/82 99 Physical Exam Const: Nontoxic, well-appearing female in no acute distress. Head: Atraumatic Eyes: Normal Conjunctiva ENT: Normal External Ears, Nose and Mouth. Neck: Full range of motion..~ No meningismus. Resp: Clear to auscultation bilaterally Cardio: Regular rate and rhythm, no murmurs Abd: Soft, non tender, non distended. Normal bowel sounds and mild bilateral suprapubic tenderness to palpation. No rebound tenderness or guarding. No McBurney's point tenderness. Skin: No petechiae or rashes Back: No midline or flank tenderness. Mild bilateral low back pain. No true CVA tenderness noted. Ext: No cyanosis, or edema Neur: Awake and alert Psych: Normal Mood and Affect Results 24 hrs Laboratory Tests Test 04/18/17 02:18 Bedside Urine pH (LAB) 8.5 Bedside Urine Protein (LAB) 2+ Bedside Urine Glucose (UA) Negative Bedside Urine Ketones (LAB) Negative Bedside Urine Blood 2+ Bedside Urine Nitrite (LAB) Negative Bedside Urine Leukocyte Esterase (L 1+ Current Medications Medications (Trade) Dose Ordered Sig/Eliseo Route PRN Reason Start Time Stop Time Status Last Admin Dose Admin Ketorolac Tromethamine (Toradol) 30 mg ONCE STAT IM 04/18/17 02:05 04/18/17 02:06 DC 04/18/17 02:14 Ceftriaxone Sodium (Rocephin) 1 gm ONCE ONCE IM 04/18/17 02:30 04/18/17 02:31 DC 04/18/17 02:32 Lidocaine (Xylocaine 1% (Mdv) 20 ml) 20 ml ONCE ONCE SC 04/18/17 02:30 04/18/17 02:31 DC 04/18/17 02:30 Procedures/MDM 36-year-old female presents to the emergency department with complaints of dysuria, urinary frequency and hematuria. Urine dip in the department is concerning for acute cystitis with early, uncomplicated pyelonephritis. Urine was negative. The patient was given IM Rocephin and IM Toradol in the department. Pain was improved prior to discharge. The patient is stable for outpatient management with a prescription for ciprofloxacin and naproxen. Low suspicion for significant or complicated pyelonephritis, sepsis, or other emergent conditions at time of discharge. The patient is to follow-up with her primary care physician in the next 1-2 days. The patient is to return to the department immediately for any new or worsening symptoms. Departure Diagnosis: Primary Impression: UTI (urinary tract infection) Urinary tract infection type: site unspecified Hematuria presence: without hematuria Qualified Code: N39.0 - Urinary tract infection without hematuria, site unspecified Condition: Fair Patient Instructions: Understanding Urinary Tract Infections (UTIs), Pyelonephritis, Female (Adult) Referrals: [facility] YOU HAVE RECEIVED A MEDICAL SCREENING EXAM AND THE RESULTS INDICATE THAT YOU DO NOT HAVE A CONDITION THAT REQUIRES URGENT TREATMENT IN THE EMERGENCY DEPARTMENT. FURTHER EVALUATION AND TREATMENT OF YOUR CONDITION CAN WAIT UNTIL YOU ARE SEEN IN YOUR DOCTORS OFFICE WITHIN THE NEXT 1-2 DAYS. IT IS YOUR RESPONSIBILITY TO MAKE AN APPOINTMENT FOR FOLOW-UP CARE. IF YOU HAVE A PRIMARY DOCTOR --you should call your primary doctor and schedule an appointment IF YOU DO NOT HAVE A PRIMARY DOCTOR YOU CAN CALL OUR PHYSICIAN REFERRAL HOTLINE AT IF YOU CAN NOT AFFORD TO SEE A PHYSICIAN YOU CAN CHOSE FROM THE FOLLOWING [facility] [address] [facility] [address] [facility] [address] [facility] [address] [facility] [address] [facility] [facility] [address] Additional Instructions: Follow up with your PCP within the next 1-3 days for a repeat evaluation. If you require a referral to a specialist, your Primary Care Provider may be able to provide this for you. In most patient cases, a referral is not required. If you have further questions regarding this matter, please ask your Primary Care Provider. Return the the emergency department immediately if symptoms worsen or change. If you have any questions regarding medications, ask your pharmacist or us before you leave. If any adverse reactions, occur while taking your medications, discontinue the treatment and return to the emergency department immediately. If any new or worsening symptoms, uncontrolled fevers, or other unexplained symptoms occur, return to the emergency department immediately. Take your medications as directed, and complete the entire course of treatment. PACO LOCKE PA-C Apr 18, 2017 02:45
== END 2017-04-18 02:33 | disposition home or self-care (01) ==
LOC: FTE
DX: N39.0 Urinary tract infection, site not specified (principal); F17.210 Nicotine dependence, cigarettes, uncomplicated
CPT/HCPCS: 81003; 96372; J0696; J1885; Z7502; Z7610

== ENCOUNTER 2017-07-24 17:08 | Emergency (ER) | END 2017-07-25 00:30 | disposition home or self-care (01) ==

== ENCOUNTER → 2017-12-08 23:50 | Outpatient (CLI) | END | disposition home or self-care (01) ==

== ENCOUNTER 2018-01-07 20:25 | Inpatient (IN) | END 2018-01-07 23:55 | disposition left against medical advice (07) | DRG 781 ==

== ENCOUNTER 2018-01-21 13:19 | Outpatient (CLI) | END 2018-01-21 16:30 | disposition home or self-care (01) ==

== ENCOUNTER 2018-01-21 18:52 | Outpatient (CLI) | END 2018-01-21 21:25 | disposition home or self-care (01) ==

== ENCOUNTER 2018-01-30 10:17 | Outpatient (CLI) | END 2018-01-30 13:42 | disposition home or self-care (01) ==

== ENCOUNTER 2018-02-13 10:23 | Outpatient (CLI) | END 2018-02-13 13:20 | disposition home or self-care (01) ==

== ENCOUNTER 2018-02-18 08:12 | Outpatient (CLI) | END 2018-02-18 09:12 | disposition home or self-care (01) ==

== ENCOUNTER 2018-03-08 00:35 | Inpatient (IN) | END 2018-03-10 17:10 | disposition home or self-care (01) | DRG 775 ==

== ENCOUNTER 2018-04-30 18:59 | Emergency (ER) | END 2018-04-30 22:08 | disposition home or self-care (01) ==